=== PATIENT | male | born 1990 | race Caucasian/White ===

== ENCOUNTER 2017-07-30 10:24 | Emergency (ER) | payer BC, OTHER ==
[2017-07-30 10:55] VITALS: TEMP 98.1
[2017-07-30] MEDS ORDERED: LACTATED RINGERS 1,000 ML IVS ONE (10:55)
[2017-07-30] MEDS ORDERED: KETOROLAC TROMETHAMINE INJ 30 MG/ML VIAL IV ONE (10:55)
--- NOTE | 2017-07-30 10:56 | ED.PDOC ---
History of Present Illness - General Chief Complaint: Problem Stated Complaint: left flank pain Time Seen by Provider: 07/30/17 10:54 Source: patient Exam Limitations: no limitations - History of Present Illness Initial Comments: Jessica Sun 27 y/o male woke up this am with sudden onset of sharp left flank pain radiating to left groin,felt nauseated ,did not notice dark colored urine, no fever,no dysuria,no diarrhea/or constipation,no penile discharge. Timing/Duration: this morning Quality: intermittent Onset Location: left flank Radiation: groin Activites at Onset: none Prior abdominal problems: none Sexual intercourse history: other - always Improving Factors: nothing Worsening Factors: nothing Associated Symptoms: other - see hpi Allergies/Adverse Reactions: Allergies NO KNOWN ALLERGY Allergy (Verified 07/30/17 10:42) Home Medications: Ambulatory Orders Acetamin W/Cod #3 Tab [Tylenol w/CODEINE #3] 1 ea PO Q4HR PRN #7 tab 07/30/17 Tamsulosin HCl [Flomax] 0.4 mg PO DAILY #5 cap 07/30/17 Review of Systems - Review of Systems Constitutional: States: no symptoms reported EENTM: States: no symptoms reported Respiratory: States: no symptoms reported Cardiology: States: no symptoms reported Gastrointestinal/Abdominal: States: no symptoms reported Musculoskeletal: States: see HPI All other Systems: Reviewed and Negative, No Change from Baseline Past Medical History (General) - Patient Medical History Hx Seizures: No Hx Asthma: No Surgical History: no surgical history - Vaccination History Hx Influenza Vaccination: No - Social History Hx Alcohol Use: No Hx Substance Use: No Hx Substance Use Treatment: No Hx Depression: No Family Medical History - Family History Father Family History: No Known Living Status: Still Living Physical Exam - Physical Exam General Appearance: Alert, Anxious, No apparent distress Eyes, Ears, Nose, Throat Exam: PERRL/EOMI, TMs normal, pharynx normal Neck: full range of motion, supple, normal inspection Cardiovascular/Respiratory: regular rate, rhythm, no M/R/G, normal peripheral pulses, normal breath sounds Gastrointestinal/Abdominal: non tender, soft, no organomegaly Neurologic: alert, normal mood/affect, oriented x 3 Skin Exam: normal color, warm/dry Progress - Progress Progress: 07/30/17 13:00 Last Vital Signs Temp 98.1 F 07/30/17 10:31 Pulse 55 L 07/30/17 10:31 Resp 20 07/30/17 10:31 BP 142/68 07/30/17 10:31 Pulse Ox 97 07/30/17 10:31 - Results/Orders Results/Orders: Laboratory Tests 07/30/17 07/30/17 07/30/17 11:06 11:06 11:06 WBC 9.7 RBC 5.68 Hgb 16.1 Hct 46.6 MCV 82.2 MCH 28.4 MCHC 34.5 RDW 13.3 Plt Count 253 MPV 9.4 Absolute Neuts (auto) 7.00 H Absolute Lymphs (auto) 1.70 Absolute Monos (auto) 0.80 Absolute Eos (auto) 0.10 Absolute Basos (auto) 0.10 Neutrophils % 72.2 Lymphocytes % 17.3 L Monocytes % 8.5 Eosinophils % 1.1 Basophils % 0.9 Sodium 140 Potassium 3.6 Chloride 102 Carbon Dioxide 29 Anion Gap 12.6 BUN 15 Creatinine 1.13 BUN/Creatinine Ratio 13.3 Random Glucose 139 H Serum Osmolality 282.5 Calcium 9.7 Total Bilirubin 0.8 AST 29 ALT 25 Alkaline Phosphatase 91 Serum Total Protein 8.7 H Albumin 4.9 Globulin 3.8 H Albumin/Globulin Ratio 1.3 Urine Color Yellow Urine Appearance Clear Urine pH 5.5 Ur Specific Hurley >= 1.030 Urine Protein 100 H Urine Glucose (UA) Negative Urine Ketones Trace Urine Blood Large H Urine Nitrite Negative Urine Bilirubin Small H Urine Urobilinogen 0.2 Ur Leukocyte Esterase Negative Urine RBC 20-30 H Urine WBC 0 Ur Epithelial Cells 0 Urine Bacteria 0 - EKG/XRAY/CT CT Ordered: Yes - 3 mm. left ureterolithiasis UVP junction Departure - Departure Clinical Impression: Acute flank pain, Colic, ureteral, Ureteropelvic junction calculus Time of Disposition: 13:03 Disposition: Discharge to Home or Self Care Condition: Good Departure Forms: ED Discharge - Pt. Copy, Patient Portal Self Enrollment Diet: other - DRINK EXTRA FLUIDS Prescriptions: Acetamin W/Cod #3 Tab [Tylenol w/CODEINE #3] 1 ea PO Q4HR PRN #7 tab PRN Reason: Pain Tamsulosin HCl [Flomax] 0.4 mg PO DAILY #5 cap Home Medications: Ambulatory Orders Acetamin W/Cod #3 Tab [Tylenol w/CODEINE #3] 1 ea PO Q4HR PRN #7 tab 07/30/17 Tamsulosin HCl [Flomax] 0.4 mg PO DAILY #5 cap 07/30/17 Additional Instructions: NEED TO SIGN UP WITH PRIMARY MD
[2017-07-30] MEDS ORDERED: TAMSULOSIN 0.4 MG CAP PO ONE (11:01)
[2017-07-30] MEDS: PROMETHAZINE HCL INJ 25 MG/ML VIAL IM ONE ×2 (11:56→12:41)
[2017-07-30] MEDS: MORPHINE SULFATE INJ 10 MG/ML VIAL IV ONE ×2 (11:56→12:38)
--- NOTE | 2017-07-30 12:50 | CT ---
PROCEDURE: Abdoment/Pelvis w/o Contrast HISTORY: flank pain left Indication: Same as above Comparison: None Technique: CT of the abdomen and pelvis was done without intravenous contrast. Images were obtained from the lung base to the level of the pubic symphysis in axial plane, followed by orthogonal sagittal and coronal reconstruction. Oral contrast was not given for the study. This exam was performed according to our departmental dose-optimization program, which includes automated exposure control, adjustment of the mA and/or KV according to the patient's size and/or use of iterative reconstruction technique. FINDINGS: Images through the lung bases do not show any focal infiltrates or pleural effusions. The liver, gallbladder, pancreas, spleen and the bilateral adrenal glands appear unremarkable, given the limitation of lack of intravenous contrast. The bilateral kidneys do not show any evidence of nephrolithiasis. There is no right-sided hydroureteronephrosis. There is left-sided hydroureteronephrosis to the level of the 3 mm calculus seen in the distal left pelvic ureter at the left ureterovesical junction The urinary bladder is decompressed The small bowel appears unremarkable, without any evidence of small bowel obstruction or bowel wall thickening. There is no CT evidence of acute appendicitis, pericecal inflammatory change or ileocecal mesenteric adenitis. The ileocecal junction appears unremarkable. There is no CT evidence of acute colonic diverticulitis or colitis or large bowel obstruction. There is no pathological lymphadenopathy in the retroperitoneum or in the pelvic region. There is no evidence of free fluid or free air in the abdomen or the pelvic region. There is no clinically significant abdominal aortic aneurysm. There is no clinically significant inguinal or ventral hernia. The visualized lumbar spine is unremarkable. The paravertebral soft tissues are unremarkable. The remainder of the pelvic structures are unremarkable. IMPRESSION: There is left-sided hydroureteronephrosis to the level of the 3 mm calculus seen in the distal left pelvic ureter at the left ureterovesical junction Electronically signed by: Enrique Coppola MD 07/30/2017 12:49 PM [facility] Workstation: [id number]
[2017-07-30 13:14] VITALS: BP 140/89; O2SAT 96
== END 2017-07-30 13:15 | disposition home or self-care (01) ==
LOC: ER 10:24
DX: N20.1 Calculus of ureter (principal)
CPT/HCPCS: 36415; 74176; 80053; 81001; 85025; J1885; J2270; J2550; J7120